=== PATIENT | female | born 1975 | race Caucasian/White ===

== ENCOUNTER → 2023-09-02 | Emergency (ER) | payer SELFPAY ==
[~2023-09-02] VITALS: Ht 160 cm; Wt 77.0 kg
[~2023-09-02] MED LIST: CYCLOBENZAPRINE 10MG TABLET PO ONE; KETOROLAC 30MG/ML VIAL IM ONE; NAPR-1176 MT
[2023-09-02 14:25] VITALS: O2SAT 97
[2023-09-02 17:28] VITALS: BP 130/93; PULSE 102; RESP 16; TEMP 97.6
== END ==
LOC: ER 14:13
DX: S16.1XXA Strain of muscle, fascia and tendon at neck level, initial encounter (principal); S39.012A Strain of muscle, fascia and tendon of lower back, initial encounter; V49.59XA Passenger injured in collision with other motor vehicles in traffic accident, initial encounter; Y93.89 Activity, other specified; Y92.89 Other specified places as the place of occurrence of the external cause; Y99.8 Other external cause status
CPT/HCPCS: 96372; 99283; J1885; Z7610